=== PATIENT | female | born 1975 | race Caucasian/White ===

== ENCOUNTER 2017-12-13 02:15 | Emergency (ER) | payer BC ==
[2017-12-13] MEDS ORDERED: PROMETHAZINE HCL 12.5 MG in 0.9 % SODIUM CHLORIDE 100ML 100 ML IVPB ONE (02:42)
[2017-12-13] MEDS ORDERED: 0.9 % SODIUM CHLORIDE 1,000 ML BAG IV ONE (02:42)
[2017-12-13] MEDS ORDERED: HYDROMORPHONE HCL 2 MG/ML VIAL IVP ONE ×2 (02:42→04:10)
--- NOTE | 2017-12-13 03:04 | Emergency Department Record ---
History of Present Illness - General Chief Complaint: Headache Migraine Stated Complaint: HEADACHE Time Seen by Provider: 12/13/17 02:30 Source: Patient Mode of Arrival: Ambulatory Limitations: No limitations - History of Present Illness Initial Comments: pt states she has a durham that started last pm and has gradually gotten worse until now it is severe w n/v. she has had only 1 durham that was worse then this MD Complaint: Headache Onset/Timin -: Hour(s) Onset Description: Gradual Location: Frontal, Left, Temporal Severity: Severe Severity scale (1-10): 10 Quality: Similar to previous headaches Consistency: Getting worse Improves With: Cold therapy, Medication Worsens With: Light, Noise Context: Close contacts with similar symptoms Associated Symptoms: Sensitivity to sound, Vomiting Treatments Prior to Arrival: None - Related Data Home Medications Medication Instructions Recorded Confirmed Last Taken Celecoxib 100 mg PO BID 12/13/17 12/13/17 Unknown Duloxetine HCl [Cymbalta] 20 mg PO DAILY 12/13/17 12/13/17 Unknown Mesalamine 2.4 gm PO DAILY 12/13/17 12/13/17 Unknown Sucralfate 1 gm PO QID PRN 12/13/17 12/13/17 Unknown Venlafaxine HCl [Venlafaxine HCl 150 mg PO DAILY 12/13/17 12/13/17 Unknown ER] Allergies Allergy/AdvReac Type Severity Reaction Status Date / Time acetaminophen [From VICODIN] Allergy Unknown ITCHING Unverified 06/27/17 18:11 codeine [CODEINE] Allergy Unknown DIFFICULTY Unverified 06/27/17 18:11 BREATHING hydrocodone bitartrate Allergy Unknown ITCHING Unverified 06/27/17 18:11 [From VICODIN] Sulfa (Sulfonamide Allergy Unknown HIVES Unverified 06/27/17 18:11 Antibiotics) [SULFA(SULFONAMIDE ANTIBIOTICS)] eszopiclone [From Lunesta] Allergy PT UNSURE Unverified 06/27/17 18:11 OF REACTION latex Allergy HIVES Unverified 06/27/17 18:11 Travel Screening - Travel/Exposure Within Last 30 Days Have you traveled within the last 30 days?: No - Travel Symptoms Symptom Screening: None Review of Systems Reviewed: No additional complaints except as noted below Constitutional: Reports: As per HPI. Denies: Chills, Fever, Malaise, Night sweats, Weakness, Weight change Eyes: Reports: As per HPI. Denies: Eye discharge, Eye pain, Photophobia, Vision change ENT: Reports: As per HPI. Denies: Congestion, Dental pain, Ear pain, Epistaxis , Hearing loss, Throat pain Respiratory: Reports: As per HPI. Denies: Cough, Dyspnea, Hemoptysis, Stridor, Wheezes Cardiovascular: Reports: As per HPI. Denies: Arrhythmia, Chest pain, Dyspnea on exertion, Edema, Murmurs, Orthopnea, Palpitations, Paroxysmal nocturnal dyspnea, Rheumatic Fever, Syncope Endocrine: Reports: As per HPI. Denies: Fatigue, Heat or cold intolerance, Polydipsia, Polyuria Gastrointestinal: Reports: As per HPI. Denies: Abdominal pain, Constipation, Diarrhea, Hematemesis, Hematochezia, Melena, Nausea, Vomiting Genitourinary: Reports: As per HPI. Denies: Abnormal menses, Discharge, Dyspareunia, Dysuria, Frequency, Hematuria, Incontinence, Retention, Urgency Musculoskeletal: Reports: As per HPI. Denies: Arthralgia, Back pain, Gout, Joint swelling, Myalgia, Neck pain Skin: Reports: As per HPI. Denies: Bruising, Change in color, Change in hair/ nails, Lesions, Pruritus, Rash Neurological: Reports: As per HPI. Denies: Abnormal gait, Confusion, Headache, Numbness, Paresthesias, Seizure, Tingling, Tremors, Vertigo, Weakness Psychiatric: Reports: As per HPI. Denies: Anxiety, Auditory hallucinations, Depression, Homicidal thoughts, Suicidal thoughts, Visual hallucinations Hematological/Lymphatic: Reports: As per HPI. Denies: Anemia, Blood Clots, Easy bleeding, Easy bruising, Swollen glands Past Medical History - SOCIAL HISTORY Smoking Status: Current every day smoker Alcohol Use: None Drug Use: None - RESPIRATORY Hx Respiratory Disorders: No - CARDIOVASCULAR Hx Cardio Disorders: No - NEURO Hx Neuro Disorders: No - GI Hx GI Disorders: Yes Comment:: colitis - Hx Genitourinary Disorders: No - ENDOCRINE Hx Endocrine Disorders: No - MUSCULOSKELETAL Hx Musculoskeletal Disorders: No - PSYCH Hx Psych Problems: Yes Hx Depression: Yes - HEMATOLOGY/ONCOLOGY Hx Hematology/Oncology Disorders: Yes Hx Clotting Problems: Yes (factor 5) Family Medical History Any Significant Family History?: Yes Physical Exam - General General Appearance: Alert, Oriented x3, Cooperative, Mild distress - Head Head exam: Normal inspection - Eye Eye exam: Normal appearance, PERRL, EOMI Pupils: Normal accommodation - ENT ENT exam: Normal exam, Mucous membranes moist, Normal external ear exam, Normal orophraynx Ear exam: Normal external inspection. negative: External canal tenderness Nasal Exam: Normal inspection. negative: Discharge, Sinus tenderness Mouth exam: Normal external inspection, Tongue normal Teeth exam: Normal inspection. negative: Dental caries Throat exam: Normal inspection. negative: Tonsillar erythema, Tonsillar exudate - Neck Neck exam: Normal inspection, Full ROM. negative: Tenderness - Respiratory Respiratory exam: Normal lung sounds bilaterally. negative: Respiratory distress - Cardiovascular Cardiovascular Exam: Normal rhythm, Normal heart sounds, Tachycardia - GI/Abdominal GI/Abdominal exam: Soft, Normal bowel sounds. negative: Tenderness - Rectal Rectal exam: Deferred - exam: Deferred - Extremities Extremities exam: Normal inspection, Full ROM, Normal capillary refill. negative: Tenderness - Back Back exam: Reports: Normal inspection, Full ROM. Denies: Muscle spasm, Rash noted, Tenderness - Neurological Neurological exam: Alert, CN II-XII intact, Normal gait, Oriented X3 - Psychiatric Psychiatric exam: Normal affect, Normal mood - Skin Skin exam: Dry, Intact, Normal color, Warm Course Vital Signs 12/13/17 02:23 Temperature 97.5 F L Pulse Rate [ 100 H Pulse Ox Probe] Respiratory 32 H Rate Blood Pressure 104/65 [Left Arm] Pulse Ox 99 - Reevaluation(s) Reevaluation #1: 12/13/17 04:11 pt refused LP/ she feels better, she had a steroid shot yesterday which has likely elevated her wbcs Medical Decision Making - Lab Data Result diagrams: 12/13/17 03:10 12/13/17 03:10 Disposition Disposition: Discharge Clinical Impression: Headache Qualifiers: Headache type: unspecified Headache chronicity pattern: acute headache Intractability: intractable Qualified Code(s): R51 - Headache Disposition: Home, Self-Care Condition: (1) Good Instructions: Acute Headache (ED) Additional Instructions: follow up with family doctor today. return sooner if worse. Forms: Patient Portal Access Quality - Quality Measures Quality Measures: Headache (All Ages) - Headache: Neuroimaging Quality Measure: Measure #419: Overuse of Neuroimaging Neurological Exam: Patient had a normal neurological exam. [G9535] Headache: Use of Neuroimaging: CTA, CT, MRA or MRI Ordered w/Medical Reason [ G9536] Medical Reason for Exam: Recent Onset of Severe Headache - Blood Pressure Screening Does Patient Have Any of the Following: No Blood Pressure Classification: Normal BP Reading Systolic Measurement: 106 Diastolic Measurement: 63 Screening for High Blood Pressure: < Normal BP, F/U Not Required > [G8783]
[2017-12-13 03:23] LABS: HEMATOCRIT 42.7 % (35.0-47.0); HEMOGLOBIN 14.1 gm/dl (11.6-16.0); MEAN CELL VOLUME 86.8 fl (81-97); MEAN CORPUSCULAR HEMOGLOBIN 28.7 pg (27-33); MEAN PLATELET VOLUME 10.3 fl (7.4-10.4); PLATELET COUNT 388 K/uL (130-400); RED BLOOD COUNT 4.92 M/uL (3.80-5.40); RED CELL DISTRIBUTION WIDTH 14.3 % (11.5-14.5); WHITE BLOOD COUNT W/O DIFF 13.4 K/uL (4.2-12.2)
[2017-12-13 03:31] LABS: BLOOD UREA NITROGEN 14 mg/dL (6-20); CREATININE 0.6 mg/dL (0.5-0.9); EST GLOMERULAR FILTRATION RATE > 60 mL/min
[2017-12-13 03:32] LABS: TOTAL PROTEIN 7.6 g/dL (6.6-8.7)
[2017-12-13 03:34] LABS: GLUCOSE,RANDOM 137 mg/dL (74-109)
[2017-12-13 03:36] LABS: ALT/SGPT 15 U/L (<33)
[2017-12-13 03:37] LABS: ALB/GLOB RATIO 1.2 (1.1-1.8); ALBUMIN 4.2 g/dL (4.0-5.0); ALKALINE PHOSPHATASE 104 U/L (35-104); AST/SGOT 15 U/L (10.0-35.0)
[2017-12-13] MEDS ORDERED: KETOROLAC 30 MG/ML VIAL IVP ONE (04:10)
[2017-12-13 05:45] LABS: PLATELET ESTIMATE NORMAL (NORMAL)
--- NOTE | 2017-12-14 10:08 | CT SCAN REPORT ---
DATE: 12/13/2017 at 3:44 a.m. EXAM: EMERGENCY HEAD CT. HISTORY: Severe headache, left side, beginning yesterday. TECHNIQUE: Axial CT scan of the head performed without intravenous contrast. Preliminary report provided by [facility]. COMPARISON: Head CT dated 11/13/2012. FINDINGS: No definite acute intracranial hemorrhage identified. No focal mass effect or midline shift apparent. No definite acute infarct or intracranial mass lesion is seen. Spina bifida of C1 posteriorly is incidentally noted. A developmental variant also evident previously. Etiology of the patient's headaches not clear from this CT. If the patient's symptoms warrant, follow-up brain MRI may be useful for further evaluation. IMPRESSION: EMERGENCY NONCONTRAST HEAD CT APPEARS ESSENTIALLY NEGATIVE WITH NO DEFINITE ACUTE INTRACRANIAL HEMORRHAGE OR FOCAL MASS EFFECT IDENTIFIED. JOB NUMBER: [id number] [facility]
== END 2017-12-13 04:37 | disposition home or self-care (01) ==
LOC: ER 02:15
DX: R51 Headache (principal); R11.11 Vomiting without nausea; D72.829 Elevated white blood cell count, unspecified; F17.210 Nicotine dependence, cigarettes, uncomplicated
CPT/HCPCS: 99284 ×2; 96376; 96365; 96375; 96361; 82375; 80053; 85027; 70450; J1885; J1170; J2550; J7030

== ENCOUNTER 2018-10-23 13:13 | Emergency (ER) | payer BC ==
[2018-10-23] MEDS ORDERED: 0.9 % SODIUM CHLORIDE 1,000 ML BAG IV ONE (13:31)
[2018-10-23] MEDS ORDERED: ONDANSETRON HCL IV 4 MG/2 ML VIAL IVP ONE (13:38)
[2018-10-23] MEDS ORDERED: KETOROLAC 30 MG/ML VIAL IVP ONE (13:44)
--- NOTE | 2018-10-23 13:44 | Emergency Department Record ---
History of Present Illness - General Chief complaint: Flank Pain Stated complaint: R LOWER BACK PAIN Time Seen by Provider: 10/23/18 13:26 Source: Patient Mode of Arrival: Ambulatory Limitations: No limitations - History of Present Illness Initial comments: The patient is here due to R flank pain for 14 hours. The pain is sharp and stabbing and nonradiating. She has had nausea with the pain but no vomiting or AP. Also the pain does not radiate down the R leg and there is no leg numbness, weakness, or any bowel or bladder issues. The patient states she has a hx of kidney stones like this in the past and was told she had stones in the kidney. MD Complaint: Other Onset/Timin -: Hour(s) Radiation: R flank Severity: Severe Severity scale (1-10): 10 Quality: Sharp, Stabbing Worsens with: None Associated Symptoms: Nausea/vomiting - Related Data Home Medications Medication Instructions Recorded Confirmed Last Taken Albuterol Sulfate [Proair 90 mcg IH Q4H 10/23/18 10/23/18 Unknown Respiclick] Amitriptyline HCl 10 mg PO QHS 10/23/18 10/23/18 Unknown Fluticasone Propionate [Flonase] 1 spray NA DAILY 10/23/18 10/23/18 Unknown Ipratropium [place] [Atrovent Hfa] 12.9 gm IH TID 10/23/18 10/23/18 Unknown Lamotrigine [Lamictal] 25 mg PO BID 10/23/18 10/23/18 Unknown Mesalamine [Lialda] 1.2 gm PO DAILY 10/23/18 10/23/18 Unknown Omeprazole [Prilosec] 20 mg PO DAILY 10/23/18 10/23/18 Unknown Rivaroxaban [Xarelto] 15 mg PO BID 10/23/18 10/23/18 Unknown Sucralfate 1 gm PO QID 10/23/18 10/23/18 Unknown Venlafaxine HCl [Effexor Xr] 150 mg PO DAILY 10/23/18 10/23/18 Unknown Allergies Allergy/AdvReac Type Severity Reaction Status Date / Time acetaminophen [From VICODIN] Allergy Unknown ITCHING Unverified 06/27/17 18:11 codeine [CODEINE] Allergy Unknown DIFFICULTY Unverified 06/27/17 18:11 BREATHING hydrocodone bitartrate Allergy Unknown ITCHING Unverified 06/27/17 18:11 [From VICODIN] Sulfa (Sulfonamide Allergy Unknown HIVES Unverified 06/27/17 18:11 Antibiotics) [SULFA(SULFONAMIDE ANTIBIOTICS)] eszopiclone [From Lunesta] Allergy PT UNSURE Unverified 06/27/17 18:11 OF REACTION latex Allergy HIVES Unverified 06/27/17 18:11 Travel Screening - Travel/Exposure Within Last 30 Days Have you traveled within the last 30 days?: No - Travel/Exposure Within Last Year Have you traveled outside the [place] in the last year?: No - Additonal Travel Details Have you been exposed to anyone with a communicable illness?: No - Travel Symptoms Symptom Screening: None Review of Systems Constitutional: Denies: Chills, Fever Eyes: Denies: Eye discharge ENT: Denies: Congestion Respiratory: Denies: Cough, Dyspnea Cardiovascular: Denies: Arrhythmia Endocrine: Denies: Fatigue Gastrointestinal: Reports: Nausea. Denies: Abdominal pain Genitourinary: Denies: Dysuria Musculoskeletal: Reports: Back pain Skin: Denies: Bruising Past Medical History - SOCIAL HISTORY Smoking Status: Current every day smoker - RESPIRATORY Hx Respiratory Disorders: No - CARDIOVASCULAR Hx Cardio Disorders: No - NEURO Hx Neuro Disorders: No - GI Hx GI Disorders: Yes Comment:: colitis - Hx Genitourinary Disorders: No - ENDOCRINE Hx Endocrine Disorders: No - MUSCULOSKELETAL Hx Musculoskeletal Disorders: No - PSYCH Hx Psych Problems: Yes Hx Depression: Yes - HEMATOLOGY/ONCOLOGY Hx Hematology/Oncology Disorders: Yes Hx Clotting Problems: Yes (factor 5) Family Medical History Any Significant Family History?: No Physical Exam - General General Appearance: Alert, Oriented x3, Cooperative, No acute distress - Head Head exam: Atraumatic, Normocephalic, Normal inspection - Eye Eye exam: Normal appearance, PERRL, EOMI - ENT Throat exam: Normal inspection. negative: Tonsillar erythema, Tonsillar exudate - Neck Neck exam: Normal inspection, Full ROM. negative: Tenderness - Respiratory Respiratory exam: Normal lung sounds bilaterally. negative: Respiratory distress - Cardiovascular Cardiovascular Exam: Regular rate, Normal rhythm, Normal heart sounds - GI/Abdominal GI/Abdominal exam: Soft, Normal bowel sounds. negative: Rebound, Rigid, Tenderness - Extremities Extremities exam: Normal inspection, Full ROM, Normal capillary refill. negative: Tenderness - Back Back exam: Denies: Paraspinal tenderness, Vertebral tenderness - Neurological Neurological exam: Alert, Normal gait, Oriented X3. negative: Abnormal gait, Altered, Motor sensory deficit Course Vital Signs 10/23/18 13:20 Temperature 98.7 F Pulse Rate [ 100 H Pulse Ox Probe] Respiratory 20 Rate Blood Pressure 107/63 [Left Arm] Pulse Ox 99 - Reevaluation(s) Reevaluation #1: The patient is doing better at this time. She states the pain is improved but still present. The patient is very comfortable and would like to go home due to no kidney stone being found. She is to take her home pain medicines and see her PCP early next week if needed. 10/23/18 16:07 Medical Decision Making - Data Complexity MDM Data: Labs Ordered and/or Reviewed, X-Ray Ordered and/or Reviewed - Lab Data Result diagrams: 10/23/18 13:45 10/23/18 13:45 - Radiology Data Radiology results: Report reviewed (Abd CT: Neg for any acute abnomalities.) Disposition Disposition: Discharge Clinical Impression: Right flank pain Disposition: Home, Self-Care Condition: (2) Stable Instructions: Flank Pain (ED) Additional Instructions: Please continue your home pain medicines and see your family doctor early next week for recheck. Return to the ER for any worsening symptoms. Forms: Patient Portal Access Time of Disposition: 16:06 Quality - Quality Measures Quality Measures: N/A - Blood Pressure Screening View Details: Yes Does Patient Have Any of the Following: No Blood Pressure Classification: Normal BP Reading Systolic Measurement: 104 Diastolic Measurement: 64 Screening for High Blood Pressure: < Normal BP, F/U Not Required > [G8783]
[2018-10-23 14:00] LABS: BASO % 0.6 % (0-6); HEMATOCRIT 37.4 % (35.0-47.0); HEMOGLOBIN 12.1 gm/dl (11.6-16.0); LYMPH % 36.3 % (16-45); MEAN CELL VOLUME 87.6 fl (81-97); MEAN CORPUSCULAR HEMOGLOBIN 28.3 pg (27-33); MEAN CORPUSCULAR HGB CONC 32.4 g/dl (32-36); MEAN PLATELET VOLUME 10.5 fl (7.4-10.4); MONO % 8.1 % (0-9); PLATELET COUNT 354 K/uL (130-400); RED BLOOD COUNT 4.27 M/uL (3.80-5.40); RED CELL DISTRIBUTION WIDTH 14.4 % (11.5-14.5); WHITE BLOOD COUNT W/O DIFF 9.6 K/uL (4.2-12.2)
[2018-10-23 14:16] LABS: BILIRUBIN,TOTAL < 0.20 mg/dL (0.2-1.0); BLOOD UREA NITROGEN 14 mg/dL (6-20); CREATININE 0.8 mg/dL (0.5-0.9); EST GLOMERULAR FILTRATION RATE > 60 mL/min; TOTAL PROTEIN 6.8 g/dL (6.6-8.7)
[2018-10-23 14:17] LABS: LIPASE 17 U/L (13-60)
[2018-10-23 14:18] LABS: GLUCOSE,RANDOM 116 mg/dL (74-109)
[2018-10-23 14:20] LABS: URINE APPEARANCE CLEAR; URINE BILIRUBIN NEGATIVE (NEGATIVE); URINE BLOOD NEGATIVE (NEGATIVE); URINE COLOR YELLOW; URINE GLUCOSE (UA) NEGATIVE (NEGATIVE); URINE KETONE NEGATIVE (NEGATIVE); URINE LEUKOCYTE ESTERASE TRACE (NEGATIVE); URINE NITRITE NEGATIVE (NEGATIVE); URINE PROTEIN NEGATIVE (NEGATIVE); URINE UROBILINOGEN 0.2 E.U./dL (0.20 - 1.00)
[2018-10-23 14:21] LABS: ALBUMIN 3.8 g/dL (4.0-5.0); ALKALINE PHOSPHATASE 92 U/L (35-104); ALT/SGPT 13 U/L (<33); AST/SGOT 14 U/L (10.0-35.0); BILIRUBIN,DIRECT < 0.2 mg/dL (0-0.3)
[2018-10-23 14:29] LABS: HCG,QUALITATIVE URINE NEGATIVE (NEGATIVE); URINE RBC NONE SEEN (NONE SEEN); URINE WBC 0 - 2 (0-2/hpf)
[2018-10-23] MEDS ORDERED: MAGNESIUM HYDROXIDE/AL HYDROX 30 ML, LIDOCAINE VISC 2% 15ML 15 ML PO ONE ×2 (15:44)
--- NOTE | 2018-10-23 16:10 | Emergency Department Record ---
History of Present Illness - General Chief complaint: Flank Pain Stated complaint: R LOWER BACK PAIN Time Seen by Provider: 10/23/18 13:26 Source: Patient Mode of Arrival: Ambulatory Limitations: No limitations - History of Present Illness Onset/Timin -: Hour(s) Radiation: R flank Severity: Severe Severity scale (1-10): 10 Quality: Sharp, Stabbing Worsens with: None Patient : No Associated Symptoms: Nausea/vomiting - Related Data Home Medications Medication Instructions Recorded Confirmed Last Taken Albuterol Sulfate [Proair 90 mcg IH Q4H 10/23/18 10/23/18 Unknown Respiclick] Amitriptyline HCl 10 mg PO QHS 10/23/18 10/23/18 Unknown Fluticasone Propionate [Flonase] 1 spray NA DAILY 10/23/18 10/23/18 Unknown Ipratropium [place] [Atrovent Hfa] 12.9 gm IH TID 10/23/18 10/23/18 Unknown Lamotrigine [Lamictal] 25 mg PO BID 10/23/18 10/23/18 Unknown Mesalamine [Lialda] 1.2 gm PO DAILY 10/23/18 10/23/18 Unknown Omeprazole [Prilosec] 20 mg PO DAILY 10/23/18 10/23/18 Unknown Rivaroxaban [Xarelto] 15 mg PO BID 10/23/18 10/23/18 Unknown Sucralfate 1 gm PO QID 10/23/18 10/23/18 Unknown Venlafaxine HCl [Effexor Xr] 150 mg PO DAILY 10/23/18 10/23/18 Unknown Allergies Allergy/AdvReac Type Severity Reaction Status Date / Time acetaminophen [From VICODIN] Allergy Unknown ITCHING Unverified 06/27/17 18:11 codeine [CODEINE] Allergy Unknown DIFFICULTY Unverified 06/27/17 18:11 BREATHING hydrocodone bitartrate Allergy Unknown ITCHING Unverified 06/27/17 18:11 [From VICODIN] Sulfa (Sulfonamide Allergy Unknown HIVES Unverified 06/27/17 18:11 Antibiotics) [SULFA(SULFONAMIDE ANTIBIOTICS)] eszopiclone [From Lunesta] Allergy PT UNSURE Unverified 06/27/17 18:11 OF REACTION latex Allergy HIVES Unverified 06/27/17 18:11 Travel Screening - Travel/Exposure Within Last 30 Days Have you traveled within the last 30 days?: No - Travel/Exposure Within Last Year Have you traveled outside the [place] in the last year?: No - Additonal Travel Details Have you been exposed to anyone with a communicable illness?: No - Travel Symptoms Symptom Screening: None Review of Systems Constitutional: Denies: Chills, Fever Eyes: Denies: Eye discharge ENT: Denies: Congestion Respiratory: Denies: Cough, Dyspnea Cardiovascular: Denies: Arrhythmia Endocrine: Denies: Fatigue Gastrointestinal: Reports: Nausea. Denies: Abdominal pain Genitourinary: Denies: Dysuria Musculoskeletal: Reports: Back pain Skin: Denies: Bruising Past Medical History - SOCIAL HISTORY Smoking Status: Current every day smoker - RESPIRATORY Hx Respiratory Disorders: No - CARDIOVASCULAR Hx Cardio Disorders: No - NEURO Hx Neuro Disorders: No - GI Hx GI Disorders: Yes Comment:: colitis - Hx Genitourinary Disorders: No - ENDOCRINE Hx Endocrine Disorders: No - MUSCULOSKELETAL Hx Musculoskeletal Disorders: No - PSYCH Hx Psych Problems: Yes Hx Depression: Yes - HEMATOLOGY/ONCOLOGY Hx Hematology/Oncology Disorders: Yes Hx Clotting Problems: Yes (factor 5) Family Medical History Any Significant Family History?: No Physical Exam - General Limitations: No limitations - Extremities Extremities exam: negative: Normal inspection (The patient's R lower leg is in a post surgical boot. She denies any new leg pain or tenderness. ), Full ROM Course Vital Signs 10/23/18 10/23/18 13:20 15:31 Temperature 98.7 F Pulse Rate [ 100 H 74 Pulse Ox Probe] Respiratory 20 16 Rate Blood Pressure 107/63 104/64 [Left Arm] Pulse Ox 99 99 Medical Decision Making - Lab Data Result diagrams: 10/23/18 13:45 10/23/18 13:45 Lab Results 10/23/18 10/23/18 10/23/18 Range/Units 13:45 13:45 14:10 WBC 9.6 (4.2-12.2) K/uL RBC 4.27 (3.80-5.40) M/uL Hgb 12.1 (11.6-16.0) gm/dl Hct 37.4 (35.0-47.0) % MCV 87.6 (81-97) fl MCH 28.3 (27-33) pg MCHC 32.4 (32-36) g/dl RDW 14.4 (11.5-14.5) % Plt Count 354 (130-400) K/uL MPV 10.5 H (7.4-10.4) fl Gran % 51.0 (47-80) % Lymphocytes % 36.3 (16-45) % Monocytes % 8.1 (0-9) % Eosinophils % 4.0 (0-6) % Basophils % 0.6 (0-6) % Sodium 137 (136-145) mmol/L Potassium 4.0 (3.4-4.5) mmol/L Chloride 104 (98-107) mmol/L Carbon Dioxide 23.0 (22-29) mmol/L Anion Gap 10.0 (7-16) BUN 14 (6-20) mg/dL Creatinine 0.8 (0.5-0.9) mg/dL Estimated GFR > 60 mL/min Random Glucose 116 H (74-109) mg/dL Calcium 8.7 (8.6-10.0) mg/dL Total Bilirubin < 0.20 L (0.2-1.0) mg/dL Direct Bilirubin < 0.2 (0-0.3) mg/dL AST 14 (10.0-35.0) U/L ALT 13 (<33) U/L Alkaline Phosphatase 92 (35-104) U/L Total Protein 6.8 (6.6-8.7) g/dL Albumin 3.8 L (4.0-5.0) g/dL Lipase 17 (13-60) U/L Urine Color Yellow Urine Appearance Clear Urine pH 5.5 (5.0-8.0) Ur Specific [place] >= 1.030 (1.002-1.030) Urine Protein Negative (NEGATIVE) Urine Glucose (UA) Negative (NEGATIVE) Urine Ketones Negative (NEGATIVE) Urine Blood Negative (NEGATIVE) Urine Nitrite Negative (NEGATIVE) Urine Bilirubin Negative (NEGATIVE) Urine Urobilinogen 0.2 (0.20 - 1.00) E.U./dL Ur Leukocyte Esterase Trace H (NEGATIVE) Urine RBC None seen (NONE SEEN) Urine WBC 0 - 2 (0-2/hpf) Ur Epithelial Cells 10 - 15 (FEW) Urine HCG, Qual Negative (NEGATIVE) Disposition Clinical Impression: Right flank pain Disposition: Home, Self-Care Condition: (2) Stable Instructions: Flank Pain (ED) Additional Instructions: Please continue your home pain medicines and see your family doctor early next week for recheck. Return to the ER for any worsening symptoms. Forms: Patient Portal Access Quality - Quality Measures Quality Measures: N/A - Blood Pressure Screening View Details: Yes Does Patient Have Any of the Following: No Blood Pressure Classification: Normal BP Reading Systolic Measurement: 104 Diastolic Measurement: 64 Screening for High Blood Pressure: < Normal BP, F/U Not Required > [G8783]
--- NOTE | 2018-10-27 07:54 | CT SCAN REPORT ---
EXAM: NONCONTRAST CT OF THE ABDOMEN AND PELVIS HISTORY: ACUTE RIGHT FLANK PAIN, PRIOR CHOLECYSTECTOMY. TECHNIQUE: Noncontrast CT of the abdomen and pelvis was obtained. Comparison: CT of the abdomen and pelvis dated 01/05/16. FINDINGS: Stable tiny subpleural nodule in the right middle lobe. Unremarkable post contrast appearance of the liver, spleen, adrenal glands, and pancreas. The gallbladder is surgically absent. No right intrarenal calculi. Left intrarenal calculus measuring 4 mm. No hydronephrosis. No ureteral calculi. No calculi in the urinary bladder. The bladder is nondistended, not otherwise well assessed. Normal appendix. Large volume of stool in the cecum and ascending colon. The stomach and small bowel are not dilated. No focal colonic thickening or inflammatory change. Likely stable 1.4 cm left adnexal cyst. The abdominal aorta is nondilated. No acute osseous findings. IMPRESSION: 1. NO ACUTE FINDINGS IN THE ABDOMEN AND PELVIS. 2. NONOBSTRUCTING LEFT INTRARENAL CALCULUS. NO HYDRONEPHROSIS OR RIGHT SIDED UROLITHIASIS. 3. LARGE VOLUME OF STOOL IN THE CECUM AND ASCENDING COLON. J[facility]BER: [id number] [facility]
== END 2018-10-23 16:11 | disposition home or self-care (01) ==
LOC: ER 13:13
DX: R10.31 Right lower quadrant pain (principal); M54.5 Low back pain; R11.0 Nausea; F17.210 Nicotine dependence, cigarettes, uncomplicated; Z87.442 Personal history of urinary calculi
CPT/HCPCS: 74176; 80048; 80076; 81001; 81025; 83690; 85025; 96374; 96375; 99284; J1885; J2405; J7030